=== PATIENT | female | born 1980 | race African-American/Black ===

== ENCOUNTER 2018-11-29 19:36 | Inpatient (IN) | payer SELFPAY ==
[2018-11-29 20:40] LABS: HEMATOCRIT 38.1 % (36.0-47.0); HEMOGLOBIN 12.9 g/dL (12.0-15.5); MEAN CORPUSCULAR HEMOGLOBIN 32.7 pg (27.0-33.4); MEAN CORPUSCULAR VOLUME 96 fl (80-97); PLATELET COUNT 290 10^3/uL (150-450); RED BLOOD COUNT 3.96 10^6/uL (3.72-5.28); RED CELL DISTRIBUTION WIDTH 15.9 % (11.5-14.0); WHITE BLOOD COUNT 13.2 10^3/uL (4.0-10.5)
[2018-11-29 20:46] LABS: APPEARANCE,URINE CLOUDY; BILIRUBIN,URINE NEGATIVE (NEGATIVE); GLUCOSE, URINE NEGATIVE (NEGATIVE); KETONES,URINE 20 mg/dL (NEGATIVE); LEUKOCYTE ESTERASE,URINE SMALL (NEGATIVE); NITRITE,URINE NEGATIVE (NEGATIVE); PROTEIN,URINE 100 mg/dL (NEGATIVE); UROBILINOGEN,URINE NEGATIVE mg/dL (<2.0)
[2018-11-29 20:51] LABS: ALANINE AMINOTRANSFERASE 34 U/L (9-52); ALBUMIN 4.8 g/dL (3.5-5.0); ALKALINE PHOSPHATASE 110 U/L (38-126); ANION GAP 13 (5-19); ASPARTATE AMINO TRANSFERASE 75 U/L (14-36); BILIRUBIN,DIRECT 0.4 mg/dL (0.0-0.4); BILIRUBIN,TOTAL 2.1 mg/dL (0.2-1.3); BLOOD UREA NITROGEN 7 mg/dL (7-20); CALCIUM 10.3 mg/dL (8.4-10.2); CARBON DIOXIDE 24 mmol/L (22-30); CHLORIDE 104 mmol/L (98-107); GLUCOSE 134 mg/dL (75-110); POTASSIUM 3.5 mmol/L (3.6-5.0); SODIUM 140.8 mmol/L (137-145); TOTAL PROTEIN 8.6 g/dL (6.3-8.2)
[2018-11-29 21:01] LABS: COLOR,URINE DARK YELLOW
[2018-11-29] MEDS ORDERED: ONDANSETRON HCL INJ/PF 4 MG/2 ML SDV IV ONE (21:07)
[2018-11-29] MEDS ORDERED: KETOROLAC TROMETHAMINE INJ/PF 30 MG/1 ML SDV IV ONE (21:07)
[2018-11-29 21:17] LABS: ABSOLUTE LYMPHOCYTES# (MANUAL) 0.5 10^3/uL (0.5-4.7); ABSOLUTE MONOCYTES # (MANUAL) 0.3 10^3/uL (0.1-1.4); ABSOLUTE NEUTROPHILS# (MANUAL) 12.3 10^3/uL (1.7-8.2); BASOPHILS % (MANUAL) 1 % (0-2); EOSINOPHILS % (MANUAL) 0 % (0-6); HYPERSEGMENTED NEUTROPHILS PRESENT; LYMPHOCYTES % (MANUAL) 4 % (13-45); MONOCYTES % (MANUAL) 2 % (3-13); SEGMENTED NEUTROPHILS % (MAN) 93 % (42-78); TOTAL CELLS COUNTED 100; TOXIC GRANULATION SLIGHT; TOXIC VACUOLATION PRESENT
[2018-11-29 21:18] LABS: PLATELET CLUMPS PRESENT
[2018-11-29 21:19] LABS: ANISOCYTOSIS SLIGHT; POIKILOCYTOSIS SLIGHT
[2018-11-29 21:21] LABS: LIPASE 7233.2 U/L (23-300)
--- NOTE | 2018-11-29 21:52 | RADIOLOGY REPORT (SQ) ---
EXAM DESCRIPTION: CT ABDOMEN PELVIS WITHOUT IV CONTRAST COMPLETED DATE/TME: 11/29/2018 21:07 CLINICAL HISTORY: 38 years, Female, abdominal pain This exam was performed according to our departmental dose-optimization program which includes automated exposure control, adjustment of the mA and/or kVp according to patient size and/or use of iterative reconstruction technique where applicable. FINDINGS: Visualized lung bases are within normal limits. Liver, spleen, gallbladder, adrenal glands and kidneys are within normal limits. No hydronephrosis or biliary dilatation. There is no renal, ureteral or bladder calculus. There is moderate peripancreatic inflammation and mild fluid in the left upper quadrant, consistent with pancreatitis. No significant pancreatic or biliary ductal dilatation. No loculated fluid collection. No dilated loops of bowel to suggest obstruction. Mild amount of stool in the colon. Bladder is unremarkable. Gynecologic organs are unremarkable. No abdominal or pelvic lymphadenopathy. Abdominal aorta is mildly calcified without aneurysm. IMPRESSION: Moderate findings of acute pancreatitis.
[2018-11-29] MEDS ORDERED: MORPHINE SULFATE 10 MG/ML INJ IV ONE (21:59)
[2018-11-29] MEDS ORDERED: NORMAL SALINE 1000 ML 1,000 ML IV ONE (22:01)
--- NOTE | 2018-11-29 22:03 | ER Document Report ---
ED General - General Chief Complaint: Abdominal Pain Stated Complaint: ABDOMINAL PAIN Time Seen by Provider: 11/29/18 21:03 TRAVEL OUTSIDE OF THE [place] IN LAST 30 DAYS: No - HPI Notes: Patient is a 38-year-old female presents emergency department for evaluation. She states she has lower abdominal pain that radiates into the back. She denies any fevers or chills. She has had nausea but no emesis. Today. No hematuria, dysuria, urinary frequency. She denies any vaginal discharge. She states she is currently only in a sexual relationship with another woman. She denies any other sexual activity. She had a normal menstrual period last month. - Related Data Allergies/Adverse Reactions: No Known Allergies Allergy (Verified 12/21/15 08:17) Past Medical History - General Information source: Patient - Social History Smoking Status: Current Every Day Smoker Chew tobacco use (# tins/day): No Frequency of alcohol use: Occasional Drug Abuse: None Family History: Arthritis, DM, Hypertension, Malignancy Patient has suicidal ideation: No Patient has homicidal ideation: No - Past Medical History Cardiac Medical History: Reports: Hx Hypercholesterolemia - Currently not being treated, Hx Hypertension - Currently not taking any medications Renal/ Medical History: Denies: Hx Peritoneal Dialysis - Immunizations Immunizations up to date: Yes Review of Systems - Review of Systems Constitutional: No symptoms reported EENT: No symptoms reported Cardiovascular: No symptoms reported Respiratory: No symptoms reported Gastrointestinal: See HPI Genitourinary: No symptoms reported Female Genitourinary: No symptoms reported Musculoskeletal: No symptoms reported Skin: No symptoms reported Neurological/Psychological: No symptoms reported Physical Exam - Vital signs Vitals: Temp Pulse Resp BP Pulse Ox 98.0 F 100 24 H 176/107 H 100 11/29/18 19:50 11/29/18 19:50 11/29/18 19:50 11/29/18 19:50 11/29/18 19:50 - Notes Notes: Vital signs reviewed, please refer to chart. Patient is normocephalic, atraumatic. Pupils equal round, reactive to light. Neck is supple without men ingismus. Heart is regular rate and rhythm. Lungs are clear to auscultation bilaterally. Abdomen reveals generalized abdominal tenderness, with more focal tenderness in the epigastric region. Some voluntary guarding but no rebound. Extremities without cyanosis, clubbing, edema. Peripheral pulses are equal. Skin is warm and dry. Patient is awake, alert, neurological exam is nonfocal. Course - Re-evaluation Re-evalutation: 11/29/18 22:01 Patient presents emergency department for evaluation of abdominal pain. She points to her lower abdomen, but her exam is more focal for epigastric pain. Laboratory investigations reveal an elevated lipase. CT scan reveals no signs of biliary blockage. Patient is treated with pain medication, IV fluids. Will contact medicine for admission. 11/29/18 22:[address] Ramachandran, he will accept the patient for further care. - Vital Signs Vital signs: Temp Pulse Resp BP Pulse Ox 98.0 F 100 24 H 176/107 H 100 11/29/18 19:50 11/29/18 19:50 11/29/18 19:50 11/29/18 19:50 11/29/18 19:50 - Laboratory Result Diagrams: 11/29/18 20:29 11/29/18 20:29 Laboratory results interpreted by me: 11/29/18 11/29/18 11/29/18 20:05 20:29 20:29 WBC 13.2 H RDW 15.9 H Seg Neuts % (Manual) 93 H Lymphocytes % (Manual) 4 L Monocytes % (Manual) 2 L Abs Neuts (Manual) 12.3 H Potassium 3.5 L Glucose 134 H Calcium 10.3 H Total Bilirubin 2.1 H AST 75 H Total Protein 8.6 H Lipase 7233.2 H Urine Protein 100 H Urine Ketones 20 H Urine Blood SMALL H Ur Leukocyte Esterase SMALL H - Diagnostic Test Radiology reviewed: Reports reviewed - Acute pancreatitis, no evidence of gallbladder pathology Discharge - Discharge Clinical Impression: Acute pancreatitis Condition: Stable Disposition: ADMITTED INPATIENT Admitting Provider: Duarte (Hospitalist) Unit Admitted: Medical Floor
[2018-11-29] MEDS ORDERED: IPRATROPIUM/ALBUTEROL 0.5-2.5 MG/3 ML AMPUL NEB PRN (22:16)
[2018-11-29] MEDS ORDERED: ACETAMINOPHEN 650 MG SUPP.RECT PR PRN (22:16)
[2018-11-29] MEDS ORDERED: METOPROLOL TARTRATE PF/INJ 5 MG/5 ML SDV IV ONE (22:16)
[2018-11-29] MEDS ORDERED: MAG HYDROX/AL HYDROX/SIMETH SUSP 30 ML UDCUP PO PRN (22:16)
[2018-11-29] MEDS ORDERED: FOLIC ACID 1 MG TABLET PO ONE (22:30)
[2018-11-29] MEDS ORDERED: THIAMINE HCL 100 MG TABLET PO ONE (23:00)
[2018-11-29 23:21] LABS: URINE BARBITURATES SCREEN NEGATIVE; URINE BENZODIAZEPINES SCREEN NEGATIVE; URINE COCAINE SCREEN NEGATIVE; URINE MARIJUANA (THC) SCREEN UNCONFIRMED POSITIVE; URINE METHADONE SCREEN NEGATIVE; URINE PHENCYCLIDINE SCREEN NEGATIVE
[2018-11-29 23:26] LABS: URINE AMPHETAMINES SCREEN NEGATIVE
[2018-11-29 23:35] LABS: FREE T3 3.23 pg/mL (2.77-5.27); FREE T4 (FREE THYROXINE) 0.95 ng/dL (0.78-2.19)
[2018-11-29] MEDS ORDERED: POTASSIUM CHLORIDE 10 MEQ CAPSULE.ER PO ONE ×2 (23:50→23:58)
[2018-11-29] MEDS: LORAZEPAM INJ 2 MG/1 ML VIAL IV PRN (23:53)
[2018-11-29] MEDS: NORMAL SALINE 1000 ML 1,000 ML IV PRN (23:55)
[2018-11-29] MEDS: POTASSI CL 20 MEQ/50 ML RIDER 20 MEQ/50 ML RTUPB IV SCH (23:55)
[2018-11-29] MEDS: ACETAMINOPHEN 325 MG TABLET PO PRN (23:59)
[2018-11-30] MEDS: POTASSI CL 20 MEQ/50 ML RIDER 20 MEQ/50 ML RTUPB IV SCH (00:14)
[2018-11-30] MEDS: HYDRALAZINE HCL INJ/PF 20 MG/1 ML SDV IV PRN ×2 (01:17→12:48)
[2018-11-30] MEDS ORDERED: DEXTROSE 40% GEL 15 GM TUBE PO PRN (01:30)
[2018-11-30] MEDS ORDERED: DEXTROSE 50%-WATER SYRINGE 12.5 GM/25 ML DOSE IV PRN (01:30)
[2018-11-30] MEDS ORDERED: DEXTROSE 40% GEL 15 GM TUBE X 2 PO PRN (01:30)
[2018-11-30] MEDS ORDERED: GLUCAGON,HUMAN RECOMB 1 MG INJ IM PRN (01:30)
[2018-11-30] MEDS ORDERED: DEXTROSE 50%-WATER SYRINGE 25 GM/50 ML DOSE IV PRN (01:30)
[2018-11-30] MEDS: LORAZEPAM INJ 2 MG/1 ML VIAL IV PRN ×3 (03:26→17:40)
[2018-11-30] MEDS: NORMAL SALINE 1000 ML 1,000 ML IV PRN ×2 (04:16→09:19)
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
[2018-11-30] MEDS: HEPARIN SOD (PORCINE) 5,000 UNIT/ML 1 ML SYRINGE SUBCUT SCH ×3 (05:26→21:16)
[2018-11-30] MEDS: KETOROLAC TROMETHAMINE INJ/PF 30 MG/1 ML SDV IV PRN ×2 (05:52→11:12)
[2018-11-30] MEDS ORDERED: METOPROLOL TARTRATE PF/INJ 5 MG/5 ML SDV IV ONE ×3 (06:04→18:04)
[2018-11-30 06:49] LABS: HEMATOCRIT 33.1 % (36.0-47.0); MEAN CORPUSCULAR HEMOGLOBIN 32.2 pg (27.0-33.4); MEAN CORPUSCULAR HGB CONC 33.3 g/dL (32.0-36.0); MEAN CORPUSCULAR VOLUME 97 fl (80-97); PLATELET COUNT 199 10^3/uL (150-450); RED BLOOD COUNT 3.42 10^6/uL (3.72-5.28); RED CELL DISTRIBUTION WIDTH 15.9 % (11.5-14.0); WHITE BLOOD COUNT 11.3 10^3/uL (4.0-10.5)
[2018-11-30 07:08] LABS: ALANINE AMINOTRANSFERASE 37 U/L (9-52); ALBUMIN 3.5 g/dL (3.5-5.0); ALKALINE PHOSPHATASE 81 U/L (38-126); ANION GAP 10 (5-19); ASPARTATE AMINO TRANSFERASE 52 U/L (14-36); BILIRUBIN,DIRECT 0.4 mg/dL (0.0-0.4); BILIRUBIN,TOTAL 1.8 mg/dL (0.2-1.3); BLOOD UREA NITROGEN 5 mg/dL (7-20); CALCIUM 8.7 mg/dL (8.4-10.2); CARBON DIOXIDE 20 mmol/L (22-30); CHLORIDE 109 mmol/L (98-107); CHOLESTEROL 217.85 mg/dL (0-200); GLUCOSE 102 mg/dL (75-110); POTASSIUM 3.7 mmol/L (3.6-5.0); SODIUM 138.8 mmol/L (137-145); TOTAL PROTEIN 6.5 g/dL (6.3-8.2); TRIGLYCERIDES 159 mg/dL (<150)
[2018-11-30 07:18] LABS: ABSOLUTE LYMPHOCYTES# (MANUAL) 0.2 10^3/uL (0.5-4.7); ABSOLUTE MONOCYTES # (MANUAL) 0.2 10^3/uL (0.1-1.4); ABSOLUTE NEUTROPHILS# (MANUAL) 10.8 10^3/uL (1.7-8.2); BAND NEUTROPHILS % (MANUAL) 3 % (3-5); BASOPHILS % (MANUAL) 0 % (0-2); EOSINOPHILS % (MANUAL) 0 % (0-6); LYMPHOCYTES % (MANUAL) 2 % (13-45); MONOCYTES % (MANUAL) 2 % (3-13); SEGMENTED NEUTROPHILS % (MAN) 93 % (42-78); TOTAL CELLS COUNTED 100
[2018-11-30 07:19] LABS: DIRECT LDL 147 mg/dL (<100)
[2018-11-30 07:20] LABS: ANISOCYTOSIS 1+; HYPOCHROMASIA SLIGHT; PLATELET COMMENT ADEQUATE; STOMATOCYTES 1+
[2018-11-30 07:27] LABS: VLDL CHOLESTEROL 31.8 mg/dL (10-31)
[2018-11-30] MEDS ORDERED: ONDANSETRON HCL INJ/PF 4 MG/2 ML SDV IV PRN (08:54)
[2018-11-30] MEDS: THIAMINE HCL 100 MG TABLET PO SCH (09:19)
[2018-11-30] MEDS: FOLIC ACID 1 MG TABLET PO SCH (09:19)
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
[2018-11-30] MEDS: NICOTINE 21 MG/24 HR PATCH.TD24 TD SCH (12:32)
[2018-11-30] MEDS: MORPHINE SULFATE 10 MG/ML INJ IV PRN ×2 (14:35→20:44)
--- NOTE | 2018-11-30 20:03 | EKG REPORT ---
SEVERITY:- BORDERLINE ECG - SINUS TACHYCARDIA BORDERLINE T ABNORMALITIES, ANTERIOR LEADS : Confirmed by: Dari Maciel MD 30-Nov-2018 20:02:32
[2018-11-30] MEDS: ACETAMINOPHEN 325 MG TABLET PO PRN (20:44)
[2018-11-30] MEDS ORDERED: LORAZEPAM INJ 2 MG/1 ML VIAL IV ONE (21:15)
[2018-12-01] MEDS: METOPROLOL TARTRATE PF/INJ 5 MG/5 ML SDV IV PRN ×4 (00:02→17:00)
[2018-12-01] MEDS: NORMAL SALINE 1000 ML 1,000 ML IV PRN ×2 (00:03→04:48)
[2018-12-01] MEDS: LORAZEPAM INJ 2 MG/1 ML VIAL IV PRN ×3 (01:10→15:47)
[2018-12-01] MEDS: ACETAMINOPHEN 325 MG TABLET PO PRN ×2 (01:10→15:47)
[2018-12-01] MEDS: MORPHINE SULFATE 10 MG/ML INJ IV PRN ×3 (02:48→20:28)
[2018-12-01 03:20] LABS: HEMATOCRIT 33.3 % (36.0-47.0); HEMOGLOBIN 11.2 g/dL (12.0-15.5); MEAN CORPUSCULAR HEMOGLOBIN 32.5 pg (27.0-33.4); MEAN CORPUSCULAR HGB CONC 33.5 g/dL (32.0-36.0); MEAN CORPUSCULAR VOLUME 97 fl (80-97); PLATELET COUNT 170 10^3/uL (150-450); RED BLOOD COUNT 3.43 10^6/uL (3.72-5.28); RED CELL DISTRIBUTION WIDTH 15.8 % (11.5-14.0); WHITE BLOOD COUNT 16.4 10^3/uL (4.0-10.5)
--- NOTE | 2018-12-01 03:24 | RADIOLOGY REPORT (SQ) ---
EXAM DESCRIPTION: CT ABDOMEN WITH IV CONTRAST COMPLETED DATE/TME: 12/01/2018 00:00 CLINICAL HISTORY: 38 years, Female, Rising fever w/ abd pain, admit w/ pancreatitis COMPARISON: 11/29/2018 CT TECHNIQUE: 501 Images stored on PACS. All CT scanners at this facility use dose modulation, iterative reconstruction, and/or weight based dosing when appropriate to reduce radiation dose to as low as reasonably achievable (ALARA). [facility]: Dose Right [facility]: CareDose [facility]: Dose Right [facility]: Teradose 4D [facility]: Smart [employer] LIMITATIONS: None. FINDINGS: Limited evaluation of the lung bases shows small bibasilar effusions, new from prior exam with new airspace opacities over each lung base as well. Osseous structures are grossly intact. Fatty infiltrative change to the liver. The spleen, adrenal glands are unremarkable. Heterogeneity of the pancreas with extensive peripancreatic inflammatory changes consistent with acute pancreatitis. Kidneys are unremarkable. Gallbladder is present. No evidence for bowel obstruction. No free air. Small amount of ascites. IMPRESSION: Acute pancreatitis, as before. Small amount of ascites, new from the prior. New small bibasilar pleural effusions with adjacent airspace opacities. TECHNICAL DOCUMENTATION: Quality ID # [id number]: Final reports with documentation of one or more dose reduction techniques (e.g., Automated exposure control, adjustment of the mA and/or kV according to patient size, use of iterative reconstruction technique) copyright 2011 [employer]- All Rights Reserved
[2018-12-01 03:33] LABS: ALANINE AMINOTRANSFERASE 24 U/L (9-52); ALKALINE PHOSPHATASE 73 U/L (38-126); ANION GAP 7 (5-19); ASPARTATE AMINO TRANSFERASE 43 U/L (14-36); BILIRUBIN,DIRECT 1.1 mg/dL (0.0-0.4); BILIRUBIN,TOTAL 2.8 mg/dL (0.2-1.3); BLOOD UREA NITROGEN 6 mg/dL (7-20); CALCIUM 8.8 mg/dL (8.4-10.2); CARBON DIOXIDE 19 mmol/L (22-30); CHLORIDE 109 mmol/L (98-107); GLUCOSE 80 mg/dL (75-110); POTASSIUM 3.3 mmol/L (3.6-5.0); TOTAL PROTEIN 5.8 g/dL (6.3-8.2)
[2018-12-01 03:40] LABS: ABSOLUTE LYMPHOCYTES# (MANUAL) 0.7 10^3/uL (0.5-4.7); ABSOLUTE MONOCYTES # (MANUAL) 0.5 10^3/uL (0.1-1.4); ABSOLUTE NEUTROPHILS# (MANUAL) 15.1 10^3/uL (1.7-8.2); BAND NEUTROPHILS % (MANUAL) 2 % (3-5); BASOPHILS % (MANUAL) 0 % (0-2); EOSINOPHILS % (MANUAL) 1 % (0-6); LIPASE 1948.4 U/L (23-300); LYMPHOCYTES % (MANUAL) 4 % (13-45); MONOCYTES % (MANUAL) 3 % (3-13); SEGMENTED NEUTROPHILS % (MAN) 90 % (42-78); TOTAL CELLS COUNTED 100
[2018-12-01 03:43] LABS: ANISOCYTOSIS 1+; PLATELET COMMENT ADEQUATE; POIKILOCYTOSIS SLIGHT; TEAR DROP CELLS SLIGHT; TOXIC GRANULATION SLIGHT; TOXIC VACUOLATION PRESENT
[2018-12-01] MEDS: HEPARIN SOD (PORCINE) 5,000 UNIT/ML 1 ML SYRINGE SUBCUT SCH ×3 (05:31→21:43)
[2018-12-01] MEDS ORDERED: LEVOFLOXACIN 750 MG/D5W RTU 750 MG/150 ML RTUPB IV ONE (07:00)
[2018-12-01] MEDS: IPRATROPIUM/ALBUTEROL 0.5-2.5 MG/3 ML AMPUL NEB SCH ×2 (08:52→16:26)
[2018-12-01] MEDS: NICOTINE 21 MG/24 HR PATCH.TD24 TD SCH (09:01)
[2018-12-01] MEDS: FOLIC ACID 1 MG TABLET PO SCH (09:01)
[2018-12-01] MEDS: THIAMINE HCL 100 MG TABLET PO SCH (09:01)
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
[2018-12-01] MEDS ORDERED: NORMAL SALINE 1000 ML 1,000 ML IV PRN (16:24)
[2018-12-01] MEDS ORDERED: POTASSI CL 20 MEQ/50 ML RIDER 20 MEQ/50 ML RTUPB IV ONE (17:00)
[2018-12-01] MEDS: DEXTROSE 5%-NORMAL SALINE 1,000 ML IV PRN ×2 (17:01→23:34)
[2018-12-01] MEDS: KETOROLAC TROMETHAMINE INJ/PF 30 MG/1 ML SDV IV PRN (22:41)
[2018-12-02] MEDS: IPRATROPIUM/ALBUTEROL 0.5-2.5 MG/3 ML AMPUL NEB SCH ×2 (00:59→08:10)
[2018-12-02] MEDS: ACETAMINOPHEN 325 MG TABLET PO PRN ×2 (01:15→05:07)
[2018-12-02] MEDS: DEXTROSE 5%-NORMAL SALINE 1,000 ML IV PRN (06:26)
[2018-12-02] MEDS: HEPARIN SOD (PORCINE) 5,000 UNIT/ML 1 ML SYRINGE SUBCUT SCH ×2 (06:29→14:27)
[2018-12-02] MEDS ORDERED: LEVOFLOXACIN 750 MG/D5W RTU 750 MG/150 ML RTUPB IV SCH (08:00)
[2018-12-02 08:11] LABS: HEMATOCRIT 29.8 % (36.0-47.0); HEMOGLOBIN 10.1 g/dL (12.0-15.5); MEAN CORPUSCULAR HEMOGLOBIN 32.9 pg (27.0-33.4); MEAN CORPUSCULAR VOLUME 97 fl (80-97); PLATELET COUNT 153 10^3/uL (150-450); RED BLOOD COUNT 3.08 10^6/uL (3.72-5.28); RED CELL DISTRIBUTION WIDTH 15.9 % (11.5-14.0); WHITE BLOOD COUNT 16.4 10^3/uL (4.0-10.5)
[2018-12-02] MEDS ORDERED: GLUCAGON,HUMAN RECOMB 1 MG INJ IM PRN (08:15)
[2018-12-02] MEDS ORDERED: DEXTROSE 50%-WATER 25 GM/50 ML DISP.SYRIN IV PRN ×2 (08:15)
[2018-12-02] MEDS ORDERED: DEXTROSE 40% GEL 15 GM TUBE PO PRN ×2 (08:15)
[2018-12-02] MEDS: KETOROLAC TROMETHAMINE INJ/PF 30 MG/1 ML SDV IV PRN (08:17)
[2018-12-02 08:29] LABS: ALANINE AMINOTRANSFERASE 16 U/L (9-52); ALBUMIN 2.7 g/dL (3.5-5.0); ALKALINE PHOSPHATASE 83 U/L (38-126); ANION GAP 7 (5-19); ASPARTATE AMINO TRANSFERASE 27 U/L (14-36); BILIRUBIN,DIRECT 1.6 mg/dL (0.0-0.4); BILIRUBIN,TOTAL 2.5 mg/dL (0.2-1.3); BLOOD UREA NITROGEN 4 mg/dL (7-20); CALCIUM 8.4 mg/dL (8.4-10.2); CARBON DIOXIDE 20 mmol/L (22-30); CHLORIDE 110 mmol/L (98-107); GLUCOSE 135 mg/dL (75-110); SODIUM 137.1 mmol/L (137-145); TOTAL PROTEIN 5.4 g/dL (6.3-8.2)
[2018-12-02 08:37] LABS: POTASSIUM 2.9 mmol/L (3.6-5.0)
[2018-12-02 08:56] LABS: ABSOLUTE MONOCYTES # (MANUAL) 0.2 10^3/uL (0.1-1.4); ABSOLUTE NEUTROPHILS# (MANUAL) 15.1 10^3/uL (1.7-8.2); BAND NEUTROPHILS % (MANUAL) 2 % (3-5); BASOPHILS % (MANUAL) 0 % (0-2); EOSINOPHILS % (MANUAL) 1 % (0-6); LYMPHOCYTES % (MANUAL) 6 % (13-45); MONOCYTES % (MANUAL) 1 % (3-13); SEGMENTED NEUTROPHILS % (MAN) 90 % (42-78); TOTAL CELLS COUNTED 100
[2018-12-02 09:03] LABS: ANISOCYTOSIS SLIGHT
[2018-12-02 09:04] LABS: STOMATOCYTES SLIGHT
[2018-12-02 09:09] LABS: PLATELET COMMENT ADEQUATE
[2018-12-02] MEDS: FOLIC ACID 1 MG TABLET PO SCH (11:17)
[2018-12-02] MEDS: NICOTINE 21 MG/24 HR PATCH.TD24 TD SCH (11:18)
[2018-12-02] MEDS: THIAMINE HCL 100 MG TABLET PO SCH (11:18)
[2018-12-02] MEDS: MORPHINE SULFATE 10 MG/ML INJ IV PRN (11:23)
[2018-12-02 11:57] VITALS: BP 147/103
[2018-12-02] MEDS ORDERED: PIPERACILLIN SODIUM/TAZOBACTAM 3.375 GM in NORMAL SALINE 100 ML IV SCH (13:00)
[2018-12-02] MEDS ORDERED: POTASSIUM CHLORIDE 10 MEQ CAPSULE.ER PO ONE (15:00)
[2018-12-02] MEDS ORDERED: MAGNESIUM SULFATE/D5W 1 GM/100 ML RTUPB IV ONE (16:00)
== END 2018-12-02 15:00 | disposition left against medical advice (07) | DRG 439 ==
LOC: ER 19:36 → EH 22:46 → 3S 11-30 00:45
PROVIDERS: ADMIT Internal Medicine; ATTEND Internal Medicine
DX: K85.20 Alcohol induced acute pancreatitis without necrosis or infection (principal); F10.230 Alcohol dependence with withdrawal, uncomplicated; I10 Essential (primary) hypertension; E78.00 Pure hypercholesterolemia, unspecified; F17.210 Nicotine dependence, cigarettes, uncomplicated; Y90.0 Blood alcohol level of less than 20 mg/100 ml; Z71.6 Tobacco abuse counseling
CPT/HCPCS: 36415; 74160; 74176; 80053; 80061; 80307; 81001; 81025; 82962; 83690; 83735; 84439; 84443; 84481; 85025; 87040; 93005; 93010; 94640; 94799; 96374; 96375; 99284; J0360; J1644; J1885; J1956; J2060; J2270; J2405; J2543; J3480; J3490; J7030; J7620